=== PATIENT | male | born 1950 ===

== ENCOUNTER 2022-08-20 06:14 | Day surgery (SDC) | payer OTHER ==
[~2022-08-20 06:14] MED LIST: CARDURA XL4 MG PO; ELIQUIS5 MG PO; GABAPENTIN300 M2 PO; GLIMEPIRIDE2 MG; GLYXAMBI 25 MG1 EACH PO; LANTUS SOL100 UNIT/1; LASIX40 MG PO; LEVO-T50 MCG PO; METFORMIN HCL500 M3 PO; NORVASC5 MG PO; ZAROXOLYN2.5 MG PO
== END 2022-08-20 19:10 | disposition home or self-care (01) ==
LOC: CIR.AMB 06:14
PROVIDERS: ATTEND Otolaryngology Otology & Neurotology
DX: H71.91 Unspecified cholesteatoma, right ear (principal); H90.11 Conductive hearing loss, unilateral, right ear, with unrestricted hearing on the contralateral side; H72.91 Unspecified perforation of tympanic membrane, right ear; I10 Essential (primary) hypertension; Z95.0 Presence of cardiac pacemaker; E11.9 Type 2 diabetes mellitus without complications; Z79.84 Long term (current) use of oral hypoglycemic drugs